=== PATIENT | female | born 1985 | race American Indian/Alaskan Native ===

== ENCOUNTER 2020-07-02 08:07 | Emergency (ER) | payer SELFPAY ==
--- NOTE | 2020-07-02 13:47 | Event Note ---
ED Screening Note Date of service: 07/02/20 Time: 13:45 ED Screening Note: Patient presents with complaints of bloody stools x yesterday States BRB in stools and when she wiped Denies history of hemorrhoids States mild lower abdominal pain This initial assessment/diagnostic orders/clinical plan/treatment(s) is/are subject to change based on patients health status, clinical progression and re- assessment by fellow clinical providers in the ED. Further treatment and workup at subsequent clinical providers discretion. Patient/guardian urged not to elope from the ED as their condition may be serious if not clinically assessed and managed. Initial orders include: Labs
[2020-07-02 14:24] LABS: Basophils # (Auto) 0.1 K/mm3 (0.0-0.1); Basophils % (Auto) 0.8 % (0.0-1.8); Eosinophils # (Auto) 0.1 K/mm3 (0.0-0.4); Eosinophils % (Auto) 1.5 % (0.0-4.3); Hematocrit 37.9 % (30.3-42.9); Hemoglobin 12.5 gm/dl (10.1-14.3); Lymphocytes # (Auto) 1.7 K/mm3 (1.2-5.4); Lymphocytes % (Auto) 22.8 % (13.4-35.0); Mean Corpuscular HGB Conc 33 % (30-34); Mean Corpuscular Volume 92 fl (79-97); Monocytes # (Auto) 0.5 K/mm3 (0.0-0.8); Monocytes % (Auto) 6.1 % (0.0-7.3); Platelet Count 256 K/mm3 (140-440); Red Blood Count 4.12 M/mm3 (3.65-5.03); Red Cell Distribution Width 13.9 % (13.2-15.2)
[2020-07-02 14:26] VITALS: BP 164/79
[2020-07-02 14:33] LABS: Partial Thromboplastin Time 32.2 Sec. (24.2-36.6)
--- NOTE | 2020-07-02 14:46 | Emergency Department Report ---
ED General Adult HPI - General Chief complaint: GI Bleed Stated complaint: BLOOD IN STOOL Time Seen by Provider: 07/02/20 13:47 Source: patient Mode of arrival: Ambulatory Limitations: No Limitations - History of Present Illness Initial comments: 35-year-old female noted blood in her stool which was formed yesterday and today. It was not of large quantity. She does not complain of abdominal pain. She states that she has been having normal bowel movements every day. She denies fever chills or injury. She states that she has not had this problem b efore. -: Gradual, days(s) Associated Symptoms: denies other symptoms - Related Data Previous Rx's Medication Instructions Recorded Last Taken Type HYDROcodone/APAP 5-325 [[place] 1 each PO Q6HR PRN #14 tablet 07/05/15 Unknown Rx 5-325 mg TAB] Meclizine [Antivert] 25 mg PO TID PRN #14 tablet 07/05/15 Unknown Rx Allergies Allergy/AdvReac Type Severity Reaction Status Date / Time ibuprofen Allergy Hives Verified 07/02/20 08:09 ED Review of Systems ROS: Stated complaint: BLOOD IN STOOL Other details as noted in HPI Constitutional: denies: chills, fever Eyes: denies: eye pain, vision change ENT: denies: ear pain, throat pain Respiratory: wheezing. denies: cough, shortness of breath Cardiovascular: denies: chest pain, palpitations Endocrine: no symptoms reported Gastrointestinal: denies: abdominal pain, nausea, vomiting, diarrhea Genitourinary: denies: urgency, dysuria Musculoskeletal: denies: back pain, arthralgia Skin: denies: rash, lesions Neurological: denies: headache, weakness, paresthesias Psychiatric: denies: anxiety, depression Hematological/Lymphatic: denies: easy bleeding, easy bruising ED Past Medical Hx - Past Medical History Previous Medical History?: No - Surgical History Past Surgical History?: No - Social History Smoking Status: Current Every Day Smoker Substance Use Type: Alcohol - Medications Home Medications: Home Medications Medication Instructions Recorded Confirmed Last Taken Type HYDROcodone/APAP 5-325 [[place] 1 each PO Q6HR PRN #14 tablet 07/05/15 Unknown Rx 5-325 mg TAB] Meclizine [Antivert] 25 mg PO TID PRN #14 tablet 07/05/15 Unknown Rx ED Physical Exam - General Limitations: No Limitations General appearance: alert, in no apparent distress - Head Head exam: Present: atraumatic, normocephalic - Eye Eye exam: Present: normal appearance. Absent: scleral icterus - ENT ENT exam: Present: mucous membranes moist - Neck Neck exam: Present: normal inspection. Absent: tenderness, meningismus - Respiratory Respiratory exam: Present: normal lung sounds bilaterally. Absent: respiratory distress - Cardiovascular Cardiovascular Exam: Present: regular rate, normal rhythm. Absent: systolic murmur, diastolic murmur, rubs, gallop - GI/Abdominal GI/Abdominal exam: Present: soft, normal bowel sounds. Absent: distended, tenderness, guarding, rebound, rigid - Rectal Rectal exam: Present: heme (+) stool, hemorrhoids (External hemorrhoids without thrombosis or obvious bleeding), other - Extremities Exam Extremities exam: Present: normal inspection - Back Exam Back exam: Present: normal inspection - Neurological Exam Neurological exam: Present: alert, oriented X3, CN II-XII intact. Absent: motor sensory deficit - Psychiatric Psychiatric exam: Present: normal affect, normal mood - Skin Skin exam: Present: warm, dry, intact, normal color. Absent: rash ED Course Vital Signs 07/02/20 07/02/20 08:11 14:23 Temperature 98.0 F Pulse Rate 69 65 Respiratory 17 16 Rate Blood Pressure 132/81 Blood Pressure 164/79 [Left] O2 Sat by Pulse 100 99 Oximetry ED Medical Decision Making - Lab Data Result diagrams: 07/02/20 13:54 Laboratory Results - last 24 hr 07/02/20 07/02/20 13:54 13:54 WBC 7.6 RBC 4.12 Hgb 12.5 Hct 37.9 MCV 92 MCH 30 MCHC 33 RDW 13.9 Plt Count 256 Lymph % (Auto) 22.8 [place] % (Auto) 6.1 Eos % (Auto) 1.5 Baso % (Auto) 0.8 Lymph # 1.7 [place] # 0.5 Eos # 0.1 Baso # 0.1 Seg Neutrophils % 68.8 Seg Neutrophils # 5.2 PT 13.3 INR 1.00 APTT 32.2 Critical care attestation.: If time is entered above; I have spent that time in minutes in the direct care of this critically ill patient, excluding procedure time. ED Disposition Clinical Impression: Hematochezia Disposition: DC-01 TO HOME OR SELFCARE Is pt being admited?: No Does the pt Need Aspirin: No Condition: Stable Instructions: Rectal Bleeding (ED) Additional Instructions: Return any acute change or problem. It is recommended that you get evaluation by a GI doctor who will often do a proctoscopy. Referrals: RAVI STEINBERG MD [Primary Care Provider] - 3-5 Days [facility] [Provider Group] - 3-5 Days Time of Disposition: 14:59
[2020-07-02 15:12] LABS: Alanine Aminotransferase 23 units/L (7-56); Albumin 4.3 g/dL (3.9-5); Blood Urea Nitrogen 9 mg/dL (7-17); Calcium 8.9 mg/dL (8.4-10.2); Hemolysis Index 4
[2020-07-02 15:22] LABS: BUN/Creatinine Ratio 18; Bilirubin,Direct < 0.2 mg/dL (0-0.2)
== END 2020-07-02 15:11 | disposition home or self-care (01) ==
LOC: ED 08:07
DX: K92.1 Melena (principal); F17.200 Nicotine dependence, unspecified, uncomplicated; Z88.6 Allergy status to analgesic agent; Z79.899 Other long term (current) drug therapy
CPT/HCPCS: 36415; 80048; 80076; 85025; 85610; 85730

== ENCOUNTER 2022-01-11 13:34 | Emergency (ER) | payer SELFPAY ==
--- NOTE | 2022-01-11 16:26 | Emergency Department Report ---
ED Upper Extremity Inj HPI - General Chief Complaint: Shoulder Injury Stated Complaint: UNABLE TO LIFT RT ARM Source: patient Mode of arrival: Ambulatory Limitations: No Limitations - History of Present Illness Initial Comments: 36 yo comes to ER with r shoulder pain. She was having sex and was in the "same position too long." Denies rough sex or injury Neurovasc intact Complaint: Injury to:: right -: Gradual, hour(s) Place: home Associated Symptoms: denies other symptoms - Related Data Allergies Allergy/AdvReac Type Severity Reaction Status Date / Time ibuprofen Allergy Hives Verified 07/02/20 08:09 ED Review of Systems ROS: Stated complaint: UNABLE TO LIFT RT ARM Other details as noted in HPI Comment: All other systems reviewed and negative ED Past Medical Hx - Past Medical History Hx Hypertension: No - Surgical History Past Surgical History?: No - Family History Family history: no significant - Social History Smoking Status: Unknown if ever smoked Substance Use Type: Alcohol ED Physical Exam - General Limitations: No Limitations General appearance: alert, in no apparent distress - Head Head exam: Present: atraumatic, normocephalic - Eye Eye exam: Present: normal appearance - ENT ENT exam: Present: mucous membranes moist - Neck Neck exam: Present: normal inspection - Respiratory Respiratory exam: Present: normal lung sounds bilaterally. Absent: respiratory distress - Cardiovascular Cardiovascular Exam: Present: regular rate, normal rhythm. Absent: systolic murmur, diastolic murmur, rubs, gallop - GI/Abdominal GI/Abdominal exam: Present: soft, normal bowel sounds - Extremities Exam Extremities exam: Present: normal inspection - Back Exam Back exam: Present: normal inspection - Neurological Exam Neurological exam: Present: alert, oriented X3 - Psychiatric Psychiatric exam: Present: normal affect, normal mood - Skin Skin exam: Present: warm, dry, intact, normal color. Absent: rash ED Course Vital Signs 01/11/22 01/11/22 15:39 17:04 Temperature 98.2 F Pulse Rate 56 L 75 Respiratory 18 16 Rate Blood Pressure 133/74 Blood Pressure 168/97 [Right] O2 Sat by Pulse 100 100 Oximetry ED Medical Decision Making - Radiology Data Radiology results: report reviewed, image reviewed nap - Medical Decision Making Vital Signs 01/11/22 01/11/22 15:39 17:04 Temperature 98.2 F Pulse Rate 56 L 75 Respiratory 18 16 Rate Blood Pressure 133/74 Blood Pressure 168/97 [Right] O2 Sat by Pulse 100 100 Oximetry xray neg full rom and neurovasc intact on exam dc home with dc plan of care including activity and follow up - Differential Diagnosis ro fx/ dislocation Critical care attestation.: If time is entered above; I have spent that time in minutes in the direct care of this critically ill patient, excluding procedure time. ED Disposition Clinical Impression: Shoulder pain Qualifiers: Chronicity: acute Disposition: HOME / SELF CARE / HOMELESS Is pt being admited?: No Does the pt Need Aspirin: No Condition: Stable Instructions: Shoulder Pain Additional Instructions: REST ICE MOTRIN OR TYLENOL FOR PAIN FOLLOW UP WITH ORTHO IF PAIN PERSISTS REFERRAL BELOW XRAY NORMAL Referrals: JACQUI MONTELONGO MD [Staff Physician] - 3-5 Days Time of Disposition: 16:29
[2022-01-11 17:06] VITALS: BP 168/97
--- NOTE | 2022-01-11 23:53 | XRay Report ---
RIGHT SHOULDER 3 VIEWS INDICATION / CLINICAL INFORMATION: Pain in right shoulder. COMPARISON: None available. FINDINGS: BONES and JOINT(S): No acute fracture or subluxation. No significant arthritis. SOFT TISSUES: No significant abnormality. ADDITIONAL FINDINGS: None. IMPRESSION: 1. No acute findings. Signer Name: Carmelo Arcos MD Signed: 01/11/2022 4:18 PM Workstation Name: [id number]
== END 2022-01-11 17:10 | disposition home or self-care (01) ==
LOC: ED 13:34
DX: M25.511 Pain in right shoulder (principal); F10.20 Alcohol dependence, uncomplicated
CPT/HCPCS: 99283